=== PATIENT | female | born 1990 | race Caucasian/White ===

== ENCOUNTER 2022-05-17 19:05 | Emergency (ER) | payer BC ==
[~2022-05-17] VITALS: Ht 165.1 cm; Wt 56.7 kg
[2022-05-17 19:21] VITALS: BP_SYST 128
[2022-05-17] MEDS ORDERED: ACETAMINOPHEN 500 MG TABLET PO ONE (21:30)
[2022-05-17 23:15] VITALS: BP_SYST 126
== END 2022-05-17 23:15 | disposition home or self-care (01) ==
LOC: SED 19:05
DX: S00.83XA Contusion of other part of head, initial encounter (principal); Z88.1 Allergy status to other antibiotic agents; Z79.899 Other long term (current) drug therapy; Y04.8XXA Assault by other bodily force, initial encounter; Y93.89 Activity, other specified; Y92.89 Other specified places as the place of occurrence of the external cause; Y99.8 Other external cause status
CPT/HCPCS: 70450-TC; 72125-TC; 76376; 81025; 99284